=== PATIENT | female | born 1935 | race Caucasian/White ===

== ENCOUNTER 2016-11-30 16:32 | Emergency (ER) | payer OTHER ==
[2016-11-30 16:42] VITALS: RESP 18
--- NOTE | 2016-11-30 18:39 | EDPHY ---
H & P Time Seen by Provider: 11/30/16 18:38 HPI/ROS: Chief complaint. Spasms, shaky HPI. 81-year-old female presents with some spasms that seemed to go from abdomen to face that began this morning. She has a little bit of heartburn with this. No fever. No abdominal pain or nausea or vomiting. No chest discomfort other than the heartburn behind her sternum. She was prescribed an antidepressant by her physician at [facility] which she took for 3 days and then after reading the potential side effects quit taking it yesterday. Today the spasm stop. She does not know the name of the antidepressant. She has not had similar symptoms before ROS Constitutional. no fever/chills, no weakness Eyes. no problems with vision ENT. no sore throat, no nasal drainage Cardiovascular. Heartburn Respiratory. no shortness of breath, no cough Abdominal. Abdominal spasms without nausea vomiting . no problems urinating MS. no calf pain/swelling, no neck/back pain, no joint pain Skin. no rash Lymph. no swollen glands Neuro. no headache, no dizziness, no difficulty walking or with speech Past Medical/Surgical History: Past medical history is significant for hysterectomy and hypertension and dyslipidemia Social History: Single, nonsmoker, no alcohol Smoking Status: Never smoked Physical Exam: General Appearance: Alert well-developed female mild distress vital signs are stable Eyes: Pupils equal and round no pallor or injection. ENT, Mouth: Mucous membranes are moist. Respiratory: There are no retractions, lungs are clear to auscultation. Cardiovascular: Regular rate and rhythm. Gastrointestinal: Abdomen is soft and nontender, no masses, bowel sounds normal. Patient has almost a headache up appearance this fairly dramatic in goes from upper abdomen and then up to her neck every several minutes that appear to be a spasm. Neurological: Awake and alert, sensory and motor exams grossly normal. Skin: Warm and dry, no rashes. Musculoskeletal: Neck is supple nontender. Extremities symmetrical, full range of motion. Psychiatric: Patient is oriented X 3, there is no agitation. Constitutional: Initial Vital Signs Temperature (C) 36.7 C 11/30/16 16:39 Heart Rate 84 11/30/16 16:39 Respiratory Rate 18 11/30/16 16:39 Blood Pressure 133/71 H 11/30/16 16:39 O2 Sat (%) 95 08/10/17 16:39 O2 Delivery Mode Room Air Allergies/Adverse Reactions: No Known Allergies Allergy (Unverified 01/20/15 17:42) Home Medications: Medication Instructions Recorded Cholesteral Med 01/20/15 Fish Oil 01/20/15 Medical Decision Making - Diagnostics Imaging Results: One-view chest x-ray interpreted by me as nonacute Procedures: IV normal saline, monitor. Benadryl IV ED Course/Re-evaluation: Recheck at 9:00 p.m.--patient's spasms and symptoms have resolved after the Benadryl and Ativan. Her son went to get the medication and brought it back and it is mirtazapine The patient, her son, and I discussed imaging and lab results. We discussed treatment plan including criteria for return and importance of follow-up and further evaluation. They are encouraged to call their physician at [facility] tomorrow. They expressed understanding and agreement Differential Diagnosis: Possible dystonic reaction from her discontinued unknown psychiatric medication. I considered electrolyte abnormalities. - Data Points Laboratory Results: Laboratory Results 11/30/16 18:00 11/30/16 18:00 11/30/16 11/30/16 18:00 18:00 WBC 5.92 10^3/uL 10^3/uL (3.80-9.50) RBC 4.23 10^6/uL 10^6/uL (4.18-5.33) Hgb 12.2 g/dL L g/dL (12.6-16.3) Hct 37.6 % L % (38.0-47.0) MCV 88.9 fL fL (81.5-99.8) MCH 28.8 pg pg (27.9-34.1) MCHC 32.4 g/dL g/dL (32.4-36.7) RDW 13.3 % % (11.5-15.2) Plt Count 99 10^3/uL L 10^3/uL (150-400) MPV 14.2 fL H fL (8.7-11.7) Neut % (Auto) 76.7 % H % (39.3-74.2) Lymph % (Auto) 16.2 % % (15.0-45.0) Frontier % (Auto) 5.1 % % (4.5-13.0) Eos % (Auto) 1.0 % % (0.6-7.6) Baso % (Auto) 0.7 % % (0.3-1.7) Nucleat RBC Rel Count 0.0 % % (0.0-0.2) Absolute Neuts (auto) 4.54 10^3/uL 10^3/uL (1.70-6.50) Absolute Lymphs (auto) 0.96 10^3/uL L 10^3/uL (1.00-3.00) Absolute Monos (auto) 0.30 10^3/uL 10^3/uL (0.30-0.80) Absolute Eos (auto) 0.06 10^3/uL 10^3/uL (0.03-0.40) Absolute Basos (auto) 0.04 10^3/uL 10^3/uL (0.02-0.10) Absolute Nucleated RBC 0.00 10^3/uL 10^3/uL (0-0.01) Immature Gran % 0.3 % % (0.0-1.1) Immature Gran # 0.02 10^3/uL 10^3/uL (0.00-0.10) Sodium 135 mEq/L mEq/L (134-144) Potassium 5.4 mEq/L H mEq/L (3.5-5.2) Chloride 104 mEq/L mEq/L (97-110) Carbon Dioxide 20 mEq/l L mEq/l (22-31) Anion Gap 11 mEq/L mEq/L (8-16) BUN 28 mg/dL H mg/dL (7-23) Creatinine 1.4 mg/dL H mg/dL (0.6-1.0) Estimated GFR 36 Glucose 109 mg/dL H mg/dL (70-100) Calcium 10.0 mg/dL mg/dL (8.5-10.4) Troponin I < 0.012 ng/mL ng/mL (0-0.034) Lipase 34.0 IU/L IU/L (23-300) Medications Given: Discontinued Medications Diphenhydramine HCl (Benadryl Injection) 12.5 mg IVP EDNOW ONE Stop: 11/30/16 19:36 Last Admin: 11/30/16 19:46 Dose: 12.5 mg Lorazepam (Ativan Injection) 1 mg IVP EDNOW ONE Stop: 11/30/16 18:51 Last Admin: 11/30/16 19:23 Dose: Not Given Departure - Departure Disposition: Home, Routine, Self-Care Clinical Impression: Acute dystonic reaction due to drugs Condition: Good Instructions: Tremors (ED) Additional Instructions: May use Benadryl every 6 hours if needed for return of spasms. Call Dr. oscar walter at [facility] tomorrow to discuss medication. Return tonight for worsening symptoms Referrals: JN HARLEY [Primary Care Provider] - 1 day without fail
[2016-11-30] MEDS ORDERED: LORazepam 2 MG/ML INJ IVP ONE (18:50)
[2016-11-30 18:54] LABS: % IMMATURE GRANULYOCYTES 0.3 % (0.0-1.1); ABSOLUTE IMMATURE GRANULOCYTES 0.02 10^3/uL (0.00-0.10); ADD DIFF? NO; ADD MORPH? NO; ADD SCAN? NO; ATYPICAL LYMPHOCYTE FLAG 0 (0-99); FRAGMENT RBC FLAG 0 (0-99); HEMATOCRIT 37.6 % (38.0-47.0); HEMOGLOBIN 12.2 g/dL (12.6-16.3); LEFT SHIFT FLG 0 (0-99); LIPEMIA HEMOLYSIS FLAG 80 (0-99); MEAN CELL HEMOGLOBIN 28.8 pg (27.9-34.1); MEAN CELL HEMOGLOBIN CONCENTR. 32.4 g/dL (32.4-36.7); MEAN CELL VOLUME 88.9 fL (81.5-99.8); MEAN PLATELET VOLUME 14.2 fL (8.7-11.7); PLATELET CLUMPS FLAG 0 (0-99); PLATELET COUNT 99 10^3/uL (150-400); RED BLOOD CELL COUNT 4.23 10^6/uL (4.18-5.33); RED CELL DISTRIBUTION WIDTH 13.3 % (11.5-15.2)
[2016-11-30 19:01] LABS: ANION GAP 11 mEq/L (8-16); CARBON DIOXIDE 20 mEq/l (22-31); CHLORIDE 104 mEq/L (97-110); CREATININE 1.4 mg/dL (0.6-1.0); GLOMERULAR FILTRATION RATE 36; GLUCOSE 109 mg/dL (70-100); POTASSIUM 5.4 mEq/L (3.5-5.2); SODIUM 135 mEq/L (134-144)
[2016-11-30 19:13] LABS: TROPONIN I < 0.012 ng/mL (0-0.034)
[2016-11-30] MEDS ORDERED: LORAZEPAM 1 MG PREPACK#4 BTL TAKEHOME ONE (21:39)
[2016-11-30 21:41] VITALS: BP 125/67; PULSE 75; TEMP 97.5; O2SAT 94
[2016-11-30] MEDS ORDERED: diphenhydrAMINE 25 MG CAP PO ONE (21:44)
--- NOTE | 2016-11-30 21:44 | CPEKG ---
Heart Rate: 72 RR Interval: 833 P-R Interval: 184 QRSD Interval: 78 QT Interval: 380 QTC Interval: 416 P Fred[place]: 14 QRS Fred[place]: -29 T Wave Fred[place]: 67 EKG Severity - ABNORMAL ECG - EKG Impression: SINUS RHYTHM EKG Impression: BORDERLINE LEFT AXIS DEVIATION EKG Impression: CONSIDER ANTEROSEPTAL INFARCT Electronically Signed By: Barry Lemus 30-Nov-2016 22:17:14
== END 2016-11-30 22:13 | disposition home or self-care (01) ==
DX: G24.02 Drug induced acute dystonia (principal); T43.205A Adverse effect of unspecified antidepressants, initial encounter
CPT/HCPCS: 71010; 93005; 96374; 99285; J1200; J2060

== ENCOUNTER 2017-02-17 09:28 | Emergency (ER) | payer OTHER ==
[2017-02-17 09:53] VITALS: TEMP 98.2; O2SAT 95
--- NOTE | 2017-02-17 10:10 | EDPHY ---
General Narrative: CHIEF COMPLAINT: Left knee pain HISTORY OF PRESENT ILLNESS: Patient complains of increasing left knee pain that started approximately 10 days ago. This was when she was visiting her sister in [place]. She says that she had to use the stairs there and that is when the pain started. She resides at a place where she uses an elevator and never uses the stairs. After 1 day of using the stairs while traveling, her knee began to her. It became more painful as she kept using the stairs. It radiates into the tibial plateau. It is moderate to severe with ambulation weight-bearing. It is minimal at rest. No numbness or tingling. No changes in temperature. No calf redness, pain or swelling. No trauma or injury. No other associated complaints or modifying factors. ESTABLISHED ORTHOPEDIST: None currently. [facility] patient REVIEW OF SYSTEMS: Ten systems reviewed and are negative unless otherwise noted in the HPI PAST MEDICAL HISTORY: Hypertension, dyslipidemia, arthritis. PAST SURGICAL HISTORY: Right total hip arthroplasty SOCIAL HISTORY: Nonsmoker. Retired. Originally from [place]. Has lived in [place] for 40 years FAMILY HISTORY: Noncontributory EXAMINATION General Appearance: Alert, no distress Cardiovascular: Pulses normal throughout. Symmetric DP pulses 2+. Symmetric PT pulses 2+. Brisk cap refill Neurological: A&O, sensory symmetric, strength symmetric. No foot drop. Strength symmetric in the lower extremities. Skin: Warm and dry, no rash. No petechiae or purpura. Extremities: Tenderness of the knee joint on both joint lines. There is no tenderness of the patellar tendon. There is no crepitus. No instability of the knee. Negative Luann's. There is no warmth, redness or swelling of the calf. No tenderness of the left calf. No palpable cords. No pain with passive dorsiflexion of the left ankle. No evidence of DVT by examination. Psychiatric: Mood and affect normal DIFFERENTIAL DIAGNOSES: Including but not limited to sprain, strain, arthritis, fracture, DVT MDM: 10:05 a.m. Increasing left knee pain after using the stairs over the past week while visiting her family in [place]. Pain started when she started using the stairs. It did not start prior to that. It is moderate to severe when ambulating. Minimal at rest. No numbness or tingling. It does radiate into the tibial plateau and walking. No complaints distally. No calf pain redness or swelling. No thigh pain redness or swelling. No changes in temperature or sensation. I have ordered an x-ray of the knee. She is in no acute distress. 11:05 a.m. Contacted by radiologist Dr. Whaley. Ultrasound the left lower extremity reveals no DVT. 11:20 a.m. X-ray reveals chondrocalcinosis but no fracture dislocation. I re-evaluated the patient at this time. She continues to report pain. I informed him the negative findings. I have ordered a dose of Lucerne 5 mg. I will send her home with the same prescription. She has ibuprofen or Aleve that she can take at home. She is a [facility] patient, thus she will follow up with them. Her son is at bedside I have answered all their questions. He is comfortable with her being discharged home on her cane. Patient is comfortable this as well. We discussed ED precautions. ED Precautions: Worsening pain. Erythema, edema, cyanosis, pallor, paresthesia or anesthesia. - Diagnostics Imaging Results: Imaging Impressions Knee X-Ray 02/17/17 10:07 Impression: Chondrocalcinosis. Advanced patellofemoral chondromalacia. Extremity Venous Study 02/17/17 10:10 Impression: No deep venous thrombosis left leg. Results called to Michael Eli PA-C, at 11:00 AM. - History Smoking Status: Never smoked - Objective Vital Signs: Initial Vital Signs Temperature (C) 98.2 F 02/17/17 09:40 Heart Rate 76 02/17/17 09:40 Respiratory Rate 20 02/17/17 09:40 Blood Pressure 170/82 H 02/17/17 09:40 O2 Sat (%) 95 02/17/17 09:40 O2 Delivery Mode Room Air Allergies/Adverse Reactions: No Known Allergies Allergy (Verified 02/17/17 09:40) Home Medications: Medication Instructions Recorded Cholesteral Med 01/20/15 Fish Oil 01/20/15 Blood Pressure Medication 02/17/17 Hydrocodone/APAP 5325 [Lucerne 1 - 2 tab PO Q4H PRN #13 tab 02/17/17 5/325 (*)] Departure - Departure Disposition: Home, Routine, Self-Care Clinical Impression: Patellofemoral arthritis of left knee, Chondrocalcinosis Condition: Good Instructions: Patellofemoral Pain Syndrome (ED), Osteoarthritis (ED), Knee Pain (ED) Additional Instructions: 1. Ibuprofen 600 mg every 8-10 hours as needed 2. Lucerne as prescribed as needed 3. Follow up with your [facility] orthopedist for definitive care 4. Follow up with the on-call orthopedist throughout at work if needed 5. ED precautions as discussed Referrals: JN HARLEY [Primary Care Provider] - As per Instructions Nahum Kline MD [Medical Doctor] - As per Instructions Prescriptions: Hydrocodone/APAP 5/325 [Lucerne 5/325 (*)] 1 - 2 tab PO Q4H PRN #13 tab PRN Reason: Pain, Moderate
[2017-02-17] MEDS ORDERED: HYDROCODONE/APAP 5/325 TAB PO ONE (11:23)
[2017-02-17 11:42] VITALS: BP 198/117; PULSE 72; RESP 18
== END 2017-02-17 12:01 | disposition home or self-care (01) ==
DX: M17.9 Osteoarthritis of knee, unspecified (principal); M11.262 Other chondrocalcinosis, left knee; I10 Essential (primary) hypertension

== ENCOUNTER 2018-07-11 15:08 | Inpatient (IN) | payer OTHER ==
--- NOTE | 2018-07-11 15:54 | EDPHY ---
H & P Stated Complaint: dizzy since this waking this morning; left ear pain, headache Time Seen by Provider: 07/11/18 15:38 HPI/ROS: CHIEF COMPLAINT: Left ear pain, room spinning sensation HISTORY OF PRESENT ILLNESS: 83-year-old female presents with left ear pain and a room spinning sensation. Onset of constant left ear pain 10 days ago. Seen by primary care physician and given Cerumenex. Returned to the office 2-3 days later and the wax was cleared by the provider. [place] transiently better, but left ear pain returned and has gradually worsened. Today she woke up with dizziness, described as a room spinning sensation. The dizziness occurs especially with standing and with ambulation. Associated with occasional nausea. No prior similar symptoms. No chest pain or shortness of breath. No recent change in medications. REVIEW OF SYSTEMS: complete 10 point ROS reviewed and is negative except for the noted elements in the HPI - Personal History Current Tetanus/Diphtheria Vaccine: Unsure Current Tetanus Diphtheria and Acellular Pertussis (TDAP): Unsure - Medical/Surgical History Hx Asthma: No Hx Chronic Respiratory Disease: No Hx Diabetes: No Hx Cardiac Disease: No Hx Renal Disease: No Hx Cirrhosis: No Hx Alcoholism: No Hx HIV/AIDS: No Hx Splenectomy or Spleen Trauma: No Other PMH: PSH: cyst removal; hysterectomy; HTN, hyperlipidemia. PMH:denies - Social History Smoking Status: Never smoked Alcohol Use: Sober Drug Use: None - Physical Exam Exam: General Appearance: Alert, pleasant Eyes: Pupils equal and round, no conjunctival pallor or injection, no nystagmus ENT, Mouth: Mucous membranes moist, TMs clear, no wax present in the auditory canal Neck: Normal inspection, no tenderness Respiratory: Lungs are clear to auscultation Cardiovascular: Regular rate and rhythm, 2/6 systolic murmur Gastrointestinal: Abdomen is soft and nontender Rectal: Brown stool present Neurological: A&O, cranial nerves 2-12 intact, motor 5/5, gait is slightly unsteady Skin: Warm and dry Extremities: Normal inspection Psychiatric: Mood and affect normal Constitutional: Initial Vital Signs Temperature (C) 36.5 C 07/11/18 15:16 Heart Rate 91 07/11/18 15:16 Respiratory Rate 14 07/11/18 15:16 Blood Pressure 102/61 07/11/18 15:16 O2 Sat (%) 97 07/11/18 15:16 O2 Delivery Mode Room Air Allergies/Adverse Reactions: No Known Allergies Allergy (Verified 02/17/17 09:40) Home Medications: Medication Instructions Recorded Multivitamins [Multivitamin (*)] 1 each PO DAILY 07/11/18 Simvastatin 20 mg PO DAILY 07/11/18 amLODIPine BESYLATE [Amlodipine 5 mg PO DAILY 07/11/18 Besylate] Medical Decision Making - Diagnostics EKG Interpretation: EKG interpreted by me reveals NSR, rate 73, RBBB, LAFB. Interpretation: abnormal EKG Imaging Results: Head CT 07/11/18 15:50 Impression: 1. Elderly brain, with atrophy and probable white matter small vessel disease. 2. Nothing acute is identified. 3. See above report for additional findings. Results called and discussed with Cayla Elizalde M.D., on July 11, 2018 at 1629. Imaging: Discussed imaging studies w/ freight caller Radiologist ED Course/Re-evaluation: This pt presents with left ear pain, vertigo/dizziness and unsteady gait. Neurologic exam is normal except for unsteady gait. NIH stroke score 0. EKG reveals noevidence of ischemia or dysrhythmia. CT head is unremarkable, MRI brain ordered for further eval, r/o CVA or mass. Tylenol given for ear pain. Severe anemia present, Hct 27 with elevated BUN, suggests recent GIB. Severe anemia likely contributing to dizziness and gait disturbance. h/o intermittent BRBPR, possible eitiology of anemia, stool brown, occult blood positive. Will admit for further eval of anemia. The hospitalist service was consulted for admission. Differential Diagnosis: Differential diagnosis includes TIA, stroke, intracranial hemorrhage, tumor, electrolyte abnormality and acute labyrinthitis. - Data Points Laboratory Results: Laboratory Results 07/11/18 16:04 07/11/18 16:04 Medications Given: Amlodipine Besylate (Norvasc) 5 mg PO DAILY [facility] Stop: 01/08/19 08:59 Last Admin: 07/12/18 09:08 Dose: 5 mg Atorvastatin Calcium (Lipitor) 10 mg PO DAILY [facility] Stop: 01/08/19 08:59 Last Admin: 07/12/18 09:32 Dose: Not Given Sodium Chloride (Ns) 1,000 mls @ 125 mls/hr IV CONT [facility] Last Admin: 07/12/18 06:15 Dose: 1,000 mls Multivitamins (Tab-A-Melba) 1 each PO DAILY [facility] Stop: 01/08/19 08:59 Last Admin: 07/12/18 09:33 Dose: Not Given Pantoprazole Sodium (Protonix) 40 mg PO BID [facility] Stop: 01/07/19 20:59 Last Admin: 07/12/18 09:08 Dose: 40 mg Tramadol HCl (Ultram) 50 mg PO Q6HRS PRN PRN Reason: Pain, Moderate Able to Take PO Stop: 01/07/19 20:45 Last Admin: 07/11/18 21:11 Dose: 50 mg Trazodone HCl (Trazodone) 50 mg PO HS PRN PRN Reason: Sleep/Insomnia Stop: 01/07/19 20:59 Last Admin: 07/11/18 21:11 Dose: 50 mg Discontinued Medications Acetaminophen (Tylenol) 650 mg PO EDNOW ONE Stop: 07/11/18 17:03 Last Admin: 07/11/18 17:11 Dose: 650 mg Sodium Chloride (Ns) 500 mls @ 1,000 mls/hr IV EDNOW ONE PRN Reason: Protocol Stop: 07/11/18 17:20 Last Admin: 07/11/18 17:03 Dose: 500 mls Ketorolac Tromethamine (Toradol) 15 mg IVP ONCE ONE Stop: 07/11/18 19:57 Last Admin: 07/11/18 20:17 Dose: 15 mg Lorazepam (Ativan Injection) 0.5 mg IVP EDNOW ONE Stop: 07/11/18 17:15 Last Admin: 07/11/18 17:16 Dose: 0.5 mg Pantoprazole Sodium (Protonix) 40 mg IVP BID [facility] Stop: 01/07/19 20:59 Last Admin: 07/11/18 20:17 Dose: 40 mg Point of Care Test Results: Chemistry 07/11/18 16:18 POC Troponin I 0.00 ng/mL ng/mL (0.00-0.08) Departure - Departure Disposition: [facility] Clinical Impression: Vertigo Anemia Qualifiers: Anemia type: unspecified type Qualified Code(s): D64.9 - Anemia, unspecified Condition: Fair
[2018-07-11 16:26] LABS: PLATELET COUNT 109 10^3/uL (150-400)
[2018-07-11] MEDS ORDERED: NS 500 ML IV ONE (16:51)
[2018-07-11] MEDS ORDERED: ACETAMINOPHEN 325 MG TAB PO ONE (17:02)
[2018-07-11] MEDS ORDERED: LORazepam 2 MG/ML INJ IVP ONE (17:14)
[2018-07-11] MEDS ORDERED: LORazepam 2 MG/ML INJ ONE (17:15)
[2018-07-11] MEDS ORDERED: ACETAMINOPHEN 325 MG TAB PO PRN (17:30)
[2018-07-11] MEDS ORDERED: ONDANSETRON 4 MG/2 ML VIAL IVP PRN (17:30)
[2018-07-11] MEDS ORDERED: ONDANSETRON DISINTEGRATING 4 MG TAB PO PRN (17:30)
--- NOTE | 2018-07-11 19:11 | PDGENHP ---
<Tessa Palumbo - Last Filed: 07/11/18 19:41> History and Physical - Chief Complaint Left ear pain, vertigo - History of Present Illness 83 y/o female w/ hx of HTN, HLD presents w/ left ear pain and vertigo. 10 days prior, she was evaluated by her PCP for left ear pain. She was given Cercumenex and returned to PCP's office a few days later for wax removal. She had transient relief however the pain has worsened. Described as a dull ache w / severity of 6-7/10, it does not inhibit her hearing. Today she woke up w/ dizziness as if the room is spinning and she experiences this while upright and feels off balance. Associated w/ mild nausea. Endorses occasional bright red blood in her stool, occurring for the last few weeks. Last colonoscopy was 3-5 years ago, benign polyps removed and was instructed to f/u w/repeat colonoscopy in 5 years. Denies CP, palpitations, fever, chills, dysuria, vomiting, diarrhea , constipation. She is being admitting for further work-up, treatment and monitoring. History Information - Allergies/Home Medication List Allergies/Adverse Reactions: No Known Allergies Allergy (Verified 02/17/17 09:40) Home Medications: Multivitamins [Multivitamin (*)] 1 each PO DAILY 07/11/18 [Last Taken Unknown] Simvastatin 20 mg PO DAILY 07/11/18 [Last Taken Unknown] amLODIPine BESYLATE [Amlodipine Besylate] 5 mg PO DAILY 07/11/18 [Last Taken Unknown] I have personally reviewed and updated: family history, medical history, social history, surgical history - Past Medical History hypertension, hyperlipidemia - Surgical History Reports: hysterectomy - Family History Positive for: cancer (Mother had stomach cancer) - Social History Smoking Status: Never smoked Alcohol Use: Rarely Drug Use: None Additional social history: Lives in [place]. Originally from [place]. Has lived in [place] for 42 years. Review of Systems Review of Systems: ROS: 10pt was reviewed & negative except for what was stated in HPI & below Physical Exam Physical Exam: Lab data and imaging were reviewed. RBC/H/H:3.09/8.9/27.6 Plt: 109 BUN/Cr: 72/1.2 Trop: 0.00 Stool occult: + EKG: SR Head CT: elderly brain w/atrophy and probable white matter small vessel disease , nothing acute identified Brain MRI: Limited study d/t motion however there is no definite abnormality. Cerebral atrophy w/ evidence of chronic microvascular ischemic disease. Temp Pulse Resp BP Pulse Ox 36.8 C 76 16 163/82 H 96 07/11/18 18:36 07/11/18 18:36 07/11/18 18:36 07/11/18 18:36 07/11/18 18:36 Constitutional: uncomfortable (Moderately distressed d/t left ear pain) Eyes: PERRL, anicteric sclera, EOMI, other (No nystagmus, unable to provoke dizziness while lying supine) Ears, Nose, Mouth, Throat: moist mucous membranes, hearing normal (L ear canal w /no evidence of inflammation/infection, tympanic membrane intact not red or inflammed.), ears appear normal, no oral mucosal ulcers Cardiovascular: regular rate and rhythym, systolic murmur Peripheral Pulses: 2+: dorsalis-pedis (R) (Radial 2+), dorsalis-pedis (L) ( Radial 2+) Respiratory: no respiratory distress, no rales or rhonchi, clear to auscultation Gastrointestinal: normoactive bowel sounds, soft, non-tender abdomen, no palpable masses Genitourinary: no bladder fullness, no bladder tenderness Skin: warm, normal color, no rashes or abrasions, no fluctuance, no induration, No mottled Musculoskeletal: full muscle strength, no muscle tenderness, normal joint ROM, no joint effusions Neurologic: AAOx3, sensation intact bilaterally, CN II-XII Intact Psychiatric: interacting appropriately, not encephalopathic, thought process linear, anxious (Mildly anxious) Lymph, Heme, Immunologic: no cervical LAD, no supraclavicular LAD Lab Data & Imaging Review 07/11/18 16:04 07/11/18 16:04 WBC 4.93 10^3/uL (3.80-9.50) 07/11/18 16:04 RBC 3.09 10^6/uL (4.18-5.33) L 07/11/18 16:04 Hgb 8.9 g/dL (12.6-16.3) L 07/11/18 16:04 Hct 27.6 % (38.0-47.0) L 07/11/18 16:04 MCV 89.3 fL (81.5-99.8) 07/11/18 16:04 MCH 28.8 pg (27.9-34.1) 07/11/18 16:04 MCHC 32.2 g/dL (32.4-36.7) L 07/11/18 16:04 RDW 14.2 % (11.5-15.2) 07/11/18 16:04 Plt Count 109 10^3/uL (150-400) L 07/11/18 16:04 MPV 14.1 fL (8.7-11.7) H 07/11/18 16:04 Neut % (Auto) 80.1 % (39.3-74.2) H 07/11/18 16:04 Lymph % (Auto) 14.2 % (15.0-45.0) L 07/11/18 16:04 [place] % (Auto) 3.9 % (4.5-13.0) L 07/11/18 16:04 Eos % (Auto) 1.0 % (0.6-7.6) 07/11/18 16:04 Baso % (Auto) 0.6 % (0.3-1.7) 07/11/18 16:04 Nucleat RBC Rel Count 0.0 % (0.0-0.2) 07/11/18 16:04 Absolute Neuts (auto) 3.95 10^3/uL (1.70-6.50) 07/11/18 16:04 Absolute Lymphs (auto) 0.70 10^3/uL (1.00-3.00) L 07/11/18 16:04 Absolute Monos (auto) 0.19 10^3/uL (0.30-0.80) L 07/11/18 16:04 Absolute Eos (auto) 0.05 10^3/uL (0.03-0.40) 07/11/18 16:04 Absolute Basos (auto) 0.03 10^3/uL (0.02-0.10) 07/11/18 16:04 Absolute Nucleated RBC 0.00 10^3/uL (0-0.01) 07/11/18 16:04 Immature Gran % 0.2 % (0.0-1.1) 07/11/18 16:04 Immature Gran # 0.01 10^3/uL (0.00-0.10) 07/11/18 16:04 Sodium 138 mEq/L (135-145) 07/11/18 16:04 Potassium 4.8 mEq/L (3.5-5.2) 07/11/18 16:04 Chloride 111 mEq/L (97-110) H 07/11/18 16:04 Carbon Dioxide 18 mEq/l (22-31) L 07/11/18 16:04 Anion Gap 9 mEq/L (6-14) 07/11/18 16:04 BUN 72 mg/dL (7-23) H 07/11/18 16:04 Creatinine 1.2 mg/dL (0.6-1.0) H 07/11/18 16:04 Estimated GFR 43 07/11/18 16:04 Glucose 165 mg/dL (70-100) H 07/11/18 16:04 Calcium 9.1 mg/dL (8.5-10.4) 07/11/18 16:04 POC Troponin I 0.00 ng/mL (0.00-0.08) 07/11/18 16:18 Stool Occult Bld Scrn POSITIVE (NEGATIVE) H 07/11/18 17:00 Assessment & Plan Assessment: 83 y/o female w/ hx of HTN and HLD presents w/ 10 days worth of left ear pain transiently relieved after PCP removed wax a few days ago. Today c/o vertigo associated w/mild nausea, no vomiting. Lab works reveals anemia, stool occult + , and she endorses occasional bright red blood in stool for the last few weeks. #Left ear pain/vertigo: Stroke work-up unremarkable (Head CT and Brain MRI). Received Tylenol, 1/2L NS and Ativan in ED w/ minimal relief of ear pain. Possible viral labyrinthitis. -PT/OT to evaluate and treat -Meclizine PRN -Anti-emetics PRN -Ativan PRN -IVF x 2 bags #Anemia: Last colonoscopy 3-5 years ago w/ benign polyps removed. Last H/H was from 2017 and was 12.7/37.6. Current H/H 8.9/27.6 could be a component to her dizziness. Denies fatigue. -Cycle H&H Q4H x 2 -Consulted GI. Left message for Dr. Mancera. If H&H remain stable, possible intervention (like colonoscopy) could be performed outpatient but this is dependent on the clinical status of the pt. -Iron panel pending -Protonix -IVF x 2 bags #Hypertension: on amlodipine #Hyperlipidemia: on simvastatin Diet: Regular Code: Full VTE ppx: SCDs Dispo: Admit to obs <Josue Velasquez - Last Filed: 07/11/18 20:24> History and Physical - History of Present Illness Review of Systems Review of Systems: Physical Exam Physical Exam: Temp Pulse Resp BP Pulse Ox 36.7 C 76 16 130/70 H 97 07/11/18 19:28 07/11/18 19:28 07/11/18 19:28 07/11/18 19:28 07/11/18 19:28 Lab Data & Imaging Review 07/11/18 18:35 07/11/18 16:04 WBC 4.93 10^3/uL (3.80-9.50) 07/11/18 16:04 RBC 3.09 10^6/uL (4.18-5.33) L 07/11/18 16:04 Hgb 8.7 g/dL (12.6-16.3) L 07/11/18 18:35 Hct 27.5 % (38.0-47.0) L 07/11/18 18:35 MCV 89.3 fL (81.5-99.8) 07/11/18 16:04 MCH 28.8 pg (27.9-34.1) 07/11/18 16:04 MCHC 32.2 g/dL (32.4-36.7) L 07/11/18 16:04 RDW 14.2 % (11.5-15.2) 07/11/18 16:04 Plt Count 109 10^3/uL (150-400) L 07/11/18 16:04 MPV 14.1 fL (8.7-11.7) H 07/11/18 16:04 Neut % (Auto) 80.1 % (39.3-74.2) H 07/11/18 16:04 Lymph % (Auto) 14.2 % (15.0-45.0) L 07/11/18 16:04 [place] % (Auto) 3.9 % (4.5-13.0) L 07/11/18 16:04 Eos % (Auto) 1.0 % (0.6-7.6) 07/11/18 16:04 Baso % (Auto) 0.6 % (0.3-1.7) 07/11/18 16:04 Nucleat RBC Rel Count 0.0 % (0.0-0.2) 07/11/18 16:04 Absolute Neuts (auto) 3.95 10^3/uL (1.70-6.50) 07/11/18 16:04 Absolute Lymphs (auto) 0.70 10^3/uL (1.00-3.00) L 07/11/18 16:04 Absolute Monos (auto) 0.19 10^3/uL (0.30-0.80) L 07/11/18 16:04 Absolute Eos (auto) 0.05 10^3/uL (0.03-0.40) 07/11/18 16:04 Absolute Basos (auto) 0.03 10^3/uL (0.02-0.10) 07/11/18 16:04 Absolute Nucleated RBC 0.00 10^3/uL (0-0.01) 07/11/18 16:04 Immature Gran % 0.2 % (0.0-1.1) 07/11/18 16:04 Immature Gran # 0.01 10^3/uL (0.00-0.10) 07/11/18 16:04 Sodium 138 mEq/L (135-145) 07/11/18 16:04 Potassium 4.8 mEq/L (3.5-5.2) 07/11/18 16:04 Chloride 111 mEq/L (97-110) H 07/11/18 16:04 Carbon Dioxide 18 mEq/l (22-31) L 07/11/18 16:04 Anion Gap 9 mEq/L (6-14) 07/11/18 16:04 BUN 72 mg/dL (7-23) H 07/11/18 16:04 Creatinine 1.2 mg/dL (0.6-1.0) H 07/11/18 16:04 Estimated GFR 43 07/11/18 16:04 Glucose 165 mg/dL (70-100) H 07/11/18 16:04 Calcium 9.1 mg/dL (8.5-10.4) 07/11/18 16:04 Iron 63.0 mcg/dL (37.0-170.0) 07/11/18 18:35 TIBC 293 ug/dL (260-490) 07/11/18 18:35 Iron Saturation 22 % (20-55) 07/11/18 18:35 POC Troponin I 0.00 ng/mL (0.00-0.08) 07/11/18 16:18 Stool Occult Bld Scrn POSITIVE (NEGATIVE) H 07/11/18 17:00 Assessment & Plan Plan: Chart reviewed, personally examined, and discussed case with Lala Palumbo NP. I agree with her plan as outlined. Please see my separate note for additional details.
[2018-07-11] MEDS ORDERED: MECLIZINE HCL 12.5 MG TAB PO PRN (19:24)
[2018-07-11] MEDS ORDERED: LORazepam 0.5 MG TAB PO PRN (19:24)
[2018-07-11] MEDS ORDERED: KETOROLAC 15 MG/1 ML SDV IVP ONE (19:56)
--- NOTE | 2018-07-11 20:25 | HOSPPROG ---
Hospitalist Progress Note Assessment/Plan: I agree with plan outlined in Lala Palumbo [employer] note with the following exceptions: Briefly, 83yo rather healthy F here with vertigo and left ear pain. No drainage from ear. No URI symptoms. No fevers. Her ear feels full. Hearing slightly muffled on that side but no tinnitus. She has also been having room-spinning dizziness whenever she moves around. She lives alone and has been unsteady on her feet. Exam notable for horizontal nystagmus. Outer ear and oropharnyx appear unremarkable. Labs remarkable for hemoglobin of 8.9, MCV 89, platelets 109, Cr 1.2. CT head and MRI brain without acute stroke or bleed. Assessment/Plan: #Vertigo: Peripheral etiology, suspect BPPV or vestibular neuritis. Trial conservative mgmt with meclizine, hydration. OT for vestibular rehab. #Anemia: New. Denies blood loss. Agree with sending iron studies, b12. GI has already been consulted. If no bleeding, can likely get outpatient scope. #Thrombocytopenia: Chronic. #Elevated creatinine: Lower than previous values in our system, suspect element of CKD. Admit under observation. Objective: Vital Signs Temp Pulse Resp BP Pulse Ox 36.7 C 76 16 130/70 H 97 07/11/18 19:28 07/11/18 19:28 07/11/18 19:28 07/11/18 19:28 07/11/18 19:28 Laboratory Results 07/11/18 18:35 07/10/18 07/11/18 07/12/18 05:59 05:59 05:59 Intake Total 500 Balance 500 ICD10 Worksheet Patient Problems: Problems Problem Status Onset Vertigo Acute - ICD10 Problem Qualifiers (1) Vertigo
[2018-07-11] MEDS ORDERED: traZODone 50 MG TAB PO PRN (20:45)
[2018-07-11] MEDS ORDERED: traMADol 50 MG TAB PO PRN (20:46)
[2018-07-11] MEDS: PANTOPRAZOLE SODIUM 40 MG TAB PO SCH (20:58)
[2018-07-11] MEDS ORDERED: PANTOPRAZOLE SODIUM 40 MG VIAL IVP SCH (21:00)
[2018-07-11] MEDS: NS 1,000 ML IV SCH (22:00)
--- NOTE | 2018-07-11 23:04 | CPEKG ---
Test Reason : OPEN Blood Pressure : / mmHG Vent. Rate : 073 BPM Atrial Rate : 074 BPM P-R Int : 188 ms QRS Dur : 120 ms QT Int : 385 ms P-R-T Axes : 001 -54 041 degrees QTc Int : 425 ms Sinus rhythm Atrial premature complex Incomplete RBBB and LAFB Confirmed by Cayla Lei ([id number]) on 07/11/2018 11:04:29 PM Referred By: CAYLA LEI Confirmed By:Cayla Lei
[2018-07-12 05:24] LABS: PLATELET COUNT 93 10^3/uL (150-400)
[2018-07-12] MEDS: NS 1,000 ML IV SCH (06:15)
[2018-07-12] MEDS: amLODIPine BESYLATE 5 MG TAB PO SCH (09:08)
[2018-07-12] MEDS: MULTIVITAMINS 1 EACH TAB PO SCH ×2 (09:08→09:33)
[2018-07-12] MEDS: PANTOPRAZOLE SODIUM 40 MG TAB PO SCH ×2 (09:08→20:30)
[2018-07-12] MEDS: ATORVASTATIN CALCIUM 10 MG TAB PO SCH ×2 (09:08→09:32)
[2018-07-12] MEDS ORDERED: PEG 3350/NA SULF,BICARB,CL/KCL (GAVILYTE-G) 4000 ML BTL PO ONE ×2 (12:01→16:30)
--- NOTE | 2018-07-12 12:37 | GCON ---
[f rep st] CONSULTATION DATE OF CONSULTATION: 07/12/2018 REFERRING PHYSICIAN: Josue Velasquez MD CHIEF COMPLAINT: Anemia. HPI: I am asked to see this patient in consultation by Dr. Josue Velasquez for a chief complaint of anemia. The patient is a pleasant 83-year-old who has been having some dizziness and vertigo with ear pain and presented to the emergency room and then found to have anemia. Overnight, her hematocrit has dropped, with a hematocrit initially of 27 and now 23.0. She states that she has been having several weeks of intermittent bright red blood. She states it is just "a little bit," but she does note that there has been bright red blood in her stools, as well as on the toilet paper. She denies any melena. Her last bloody bowel movement was about a week ago. She has no prior history of GI bleeding. No history of peptic ulcer disease. Denied GERD symptoms. No dysphagia. Does not use NSAIDS. Does not drink alcohol. States she had a colonoscopy maybe 4 years ago with removal of a polyp. She is unsure if there was diverticulosis, but believes she may have had hemorrhoids. Mother of stomach cancer. ALLERGIES: No known allergies. MEDICATIONS: At home include multivitamin, amlodipine, and simvastatin. PAST MEDICAL HISTORY: Hypertension and hyperlipidemia. Cardiac murmur. She is post a hysterectomy. History of colon polyps. SOCIAL HISTORY: Denies alcohol use. FAMILY HISTORY: Mother had stomach cancer. REVIEW OF SYSTEMS: I performed a complete review of systems which was negative except for the pertinent positives and negatives noted above in the HPI. PHYSICAL EXAM: VITAL SIGNS: Today, afebrile at 36.5. BP 136/71, pulse 69. GENERAL APPEARANCE: She is alert and oriented. EYES: No scleral icterus. HEENT: No oral lesions. CARDIOVASCULAR: Regular rare and rhythm. Slight murmur. CHEST: Clear to auscultation. ABDOMEN: Positive bowel sounds. Soft. There is no tenderness. NEUROLOGIC: Nonfocal. SKIN: No lesions. LABORATORY DATA: On admission, H and H with a hemoglobin 8.9 and a hematocrit of 27.6. Today, it is now 7.0, with a hematocrit of 23. MCV was normal at 89.3. Chemistries: Elevated BUN at 72 with a creatinine of 1.2. She is Heme- positive, but there were no reports of any bright red blood or melena overnight. ASSESSMENTS: 1. Anemia, with decrease in hemoglobin and hematocrit. 2. Hematochezia, concerning for a gastrointestinal bleed; however, I think this is clinically resolved as she has had no reports of bright red blood since last week. A confusing picture because hematochezia would suggest a lower gastrointestinal bleed; however, her BUN is increased, and this often correlates with an upper gastrointestinal bleed. However, I do not think that she is having a brisk upper gastrointestinal bleed as she is otherwise hemodynamically stable. Given her significant drop in hematocrit, the patient is going to get a transfusion. I would recommend that she undergo an upper and lower endoscopy this admission. Overall she would be at increased risk due to potential for active bleeding with anemia. Discussed with the patient and her son, and they are in agreement. PLAN: 1. We will change to a clear liquid diet. 2. Prep for a colonoscopy and upper endoscopy in the morning. I would recommend that this be done with anesthesia given her age and history of cardiac murmur; however, may need to consider an urgent upper endoscopy if she should become hemodynamically unstable with evidence of active GI bleeding. Thank you for this consult. /[id number]/MODL MTDD
--- NOTE | 2018-07-12 12:44 | ASMTCMCOM ---
CM Note CM Note Notes: Pt admitted from home for dizziness and ear pain. She will have a scope tomorrow for anemia, PT/OT to [facility] bro w/f. DC Plan: TBD Date Signed: 07/12/2018 12:44 PM Electronically Signed By:Madalyn Felder RN
--- NOTE | 2018-07-12 17:20 | HOSPPROG ---
Hospitalist Progress Note Assessment/Plan: 83 y/o female w/ hx of HTN and HLD presents with left ear pain, found to be anemic and heme positive. #Left ear pain/vertigo: MRI and CT head negative. No longer with vertigo, but still has left ear pain. I attempted to examine with otoscope but her ear still had a fair amount of cerumen which obscured her tympanic membrane. -PT/OT to evaluate and treat -Meclizine PRN -Anti-emetics PRN -try debrox and re examine. #Anemia: Last colonoscopy 3-5 years ago w/ benign polyps removed. Last H/H was from 2017 and was 12.7/37.6. H/H down overnight to 11/11. -Cycle H&H Q4H x 2 -GI consulted who will take patient for colonoscopy in am. -GI prep -continue close monitoring of h/h -ppi -clears and then NPO at MN #Hypertension: on amlodipine #Hyperlipidemia: on simvastatin Diet: Regular Code: Full VTE ppx: SCDs Dispo: change to inpatient for GIB. Subjective: left ear still hurts. not dizzy or faint currently. Objective: Vital Signs Temp Pulse Resp BP Pulse Ox 36.6 C 72 14 145/66 H 94 07/12/18 15:49 07/12/18 15:49 07/12/18 15:49 07/12/18 15:49 07/12/18 15:49 Laboratory Results 07/12/18 05:05 07/12/18 05:05 07/11/18 07/12/18 07/13/18 05:59 05:59 05:59 Intake Total 650 Balance 650 - Physical Exam Constitutional: no apparent distress, appears nourished, not in pain Eyes: PERRL, anicteric sclera, EOMI Ears, Nose, Mouth, Throat: moist mucous membranes, hearing normal, ears appear normal, no oral mucosal ulcers Cardiovascular: regular rate and rhythym, no murmur, rub, or gallop Respiratory: no respiratory distress, no rales or rhonchi, clear to auscultation Gastrointestinal: normoactive bowel sounds, soft, non-tender abdomen, no palpable masses Genitourinary: no bladder fullness, no bladder tenderness, no renal bruits Skin: no rashes or abrasions, no fluctuance, no induration Musculoskeletal: full muscle strength, no muscle tenderness, normal joint ROM Neurologic: AAOx3, sensation intact bilaterally Psychiatric: interacting appropriately, not anxious, not encephalopathic, thought process linear Lymph, Heme, Immunologic: no cervical LAD, no supraclavicular LAD ICD10 Worksheet Patient Problems: Problems Problem Status Onset Anemia Acute Vertigo Acute
[2018-07-12] MEDS ORDERED: MAGNESIUM CITRATE 300 ML BOTTLE PO ONE (22:45)
[2018-07-12 23:06] LABS: PLATELET COUNT 108 10^3/uL (150-400)
[2018-07-13] MEDS: PANTOPRAZOLE SODIUM 40 MG TAB PO SCH (08:51)
[2018-07-13] MEDS: amLODIPine BESYLATE 5 MG TAB PO SCH (08:52)
[2018-07-13 09:40] LABS: PLATELET COUNT 104 10^3/uL (150-400)
[2018-07-13] MEDS: ATORVASTATIN CALCIUM 10 MG TAB PO SCH (10:48)
[2018-07-13] MEDS: MULTIVITAMINS 1 EACH TAB PO SCH (10:49)
[2018-07-13] MEDS ORDERED: fentaNYL 100 MCG/2 ML INJ IVP PRN (11:01)
[2018-07-13] MEDS ORDERED: NALOXONE HCL 0.4 MG/ML INJ IVP PRN (11:01)
[2018-07-13] MEDS ORDERED: ONDANSETRON 4 MG/2 ML VIAL IVP PRN (11:01)
[2018-07-13] MEDS ORDERED: HYDROmorphONE/DILAUDID 2 MG/ML INJ IVP PRN (11:01)
[2018-07-13] MEDS ORDERED: ALBUTEROL 3 ML DEYVIAL IH PRN (11:01)
[2018-07-13] MEDS ORDERED: NS 500 ML IV PRN (11:01)
--- NOTE | 2018-07-13 11:01 | PDANEPAE ---
ANE History of Present Illness here for EGD/colonoscopy for anemia/GI bleed ANE Past Medical History - Cardiovascular History Hx Hypertension: Yes Hx Arrhythmias: No Hx Chest Pain: No Hx Coronary Artery / Peripheral Vascular Disease: No Hx CHF / Valvular Disease: No Hx Palpitations: No Cardiovascular History Comment: history of murmur, does water aerobics - Pulmonary History Hx COPD: No Hx Asthma/Reactive Airway Disease: No Hx Recent Upper Respiratory Infection: No Hx Oxygen in Use at Home: No Hx Sleep Apnea: No Sleep Apnea Screening Result - Last Documented: Negative - Neurologic History Neurologic History Comment: h/o vertigo and left ear pain - Endocrine History Hx Diabetes: No - Renal History Hx Renal Disorders: No - Liver History Hx Hepatic Disorders: No - Neurological & Psychiatric Hx Hx Neurological and Psychiatric Disorders: No ANE Review of Systems Review of systems is: negative Review of Systems: - Exercise capacity Exercise capacity: >=4 METS ANE Patient History - Allergies Allergies/Adverse Reactions: No Known Allergies Allergy (Verified 02/17/17 09:40) - Home Medications Home medications: home medication list seen and reviewed Home Medications: Multivitamins [Multivitamin (*)] 1 each PO DAILY 07/11/18 [Last Taken Unknown] Simvastatin 20 mg PO DAILY 07/11/18 [Last Taken Unknown] amLODIPine BESYLATE [Amlodipine Besylate] 5 mg PO DAILY 07/11/18 [Last Taken Unknown] - NPO status NPO Status: no food or drink >8 hours NPO Since - Liquids (Date): 07/13/18 NPO Since - Liquids (Time): 00:01 NPO Since - Solids (Date): 07/13/18 NPO Since - Solids (Time): 00:01 - Smoking Hx Smoking Status: Never smoked - Alcohol Use Alcohol Use: Sober ANE Labs/Vital Signs - Labs Result Diagrams: 07/13/18 09:25 07/13/18 09:25 - Vital Signs Vital Signs: reviewed preoperatively; see RN documention for details Blood Pressure: 176/85 Heart Rate: 70 Respiratory Rate: 16 O2 Sat (%): 93 Height: 160.02 cm Weight: 65.77 kg ANE Physical Exam - Airway Neck exam: FROM Mallampati Score: Class 1 - Pulmonary Pulmonary: no respiratory distress - Cardiovascular Cardiovascular: regular rate and rhythym, systolic murmur - ASA Status ASA Status: II, III ANE Anesthesia Plan Anesthesia Plan: GA with mask
[2018-07-13] MEDS ORDERED: PROPOFOL/EMULSION 500 MG/50 ML BOTTLE IV ONE (11:09)
[2018-07-13] MEDS ORDERED: fentaNYL 100 MCG/2 ML INJ ONE (11:17)
--- NOTE | 2018-07-13 12:06 | GIREPORT ---
[facility] Surgical Services - Endoscopy Department Patient Name: Mita Nichole Procedure Date: 07/13/2018 10:48 AM Patient Type: Inpatient Attending MD/ ER Physician: Bryant Odell MD Procedure: Upper GI endoscopy Indications: Heme positive stool, Acute post hemorrhagic anemia Providers: Bryant Odell MD Medicines: Propofol per Anesthesia Complications: No immediate complications. Description of Procedure: After obtaining informed consent, the endoscope was passed under direct vision. Throughout the procedure, the patient's blood pressure, pulse, and oxygen saturations were monitored continuously. The Endoscope was intro duced through the mouth, and advanced to the third part of duodenum. The uppe r GI endoscopy was accomplished without difficulty. The patient tolerated th e procedure well. Findings: The examined esophagus was normal. A small hiatal hernia was present. One non-bleeding cratered gastric ulcer with no stigmata of bleeding wa s found in the gastric body and on the greater curvature of the stomach. The lesion was 10 mm in largest dimension. Multiple dispersed, small non-bleeding erosions were found in the gastr ic antrum. There were no stigmata of recent bleeding. Biopsies were taken with a cold forceps for histology. The examined duodenum was normal. Estimated Blood Loss: Estimated blood loss: none. Post Op Diagnosis: - Normal esophagus. - Small hiatal hernia. - Non-bleeding gastric ulcer with no stigmata of bleeding; probable cau se of anemia and GI bleed however should also exclude lower source. - Non-bleeding erosive gastropathy. Biopsied. - Normal examined duodenum. Recommendation: - Perform a colonoscopy today. Attending Participation: I personally performed the entire procedure. Bryant Odell MD Bryant Odell MD 07/13/2018 12:05:17 PM This report has been signed electronicallyBryant Odell MD Number of Addenda: 0 Note Initiated On: 07/13/2018 10:48 AM [email or web address]
--- NOTE | 2018-07-13 12:08 | GIREPORT ---
[facility] Surgical Services - Endoscopy Department Patient Name: Mita Nichole Procedure Date: 07/13/2018 10:56 AM Patient Type: Inpatient Attending MD/ ER Physician: Bryant Odell MD Procedure: Colonoscopy Indications: Heme positive stool, Acute post hemorrhagic anemia Providers: Bryant Odell MD Medicines: Propofol per Anesthesia Complications: No immediate complications. Description of Procedure: After obtaining informed consent, the scope was passed under direct vis ion. Throughout the procedure, the patient's blood pressure, pulse, and oxyg en saturations were monitored continuously. The Colonoscope was introduced through the anus and advanced to the terminal ileum. The colonoscopy wa s performed without difficulty. The patient tolerated the procedure well. The quality of the bowel preparation was excellent. Findings: The terminal ileum appeared normal. The colon (entire examined portion) appeared normal. The perianal and digital rectal examinations were normal. Estimated Blood Loss: Estimated blood loss: none. Post Op Diagnosis: - The examined portion of the ileum was normal. - The entire examined colon is normal. - No specimens collected. Recommendation: - [facility]. - Resume regular diet today. - Continue present medications. - Perform an upper GI endoscopy in 2 months. - The findings and recommendations were discussed with the patient's fa jayce. Attending Participation: I personally performed the entire procedure. Bryant Odell MD Bryant Odell MD 07/13/2018 12:08:09 PM This report has been signed electronicallyBryant Odell MD Number of Addenda: 0 Note Initiated On: 07/13/2018 10:56 AM Total Procedure Duration Time 0 hours 14 minutes 57 seconds [email or web address]
--- NOTE | 2018-07-13 12:12 | POSTOPPROG ---
Post Op Note Date of Operation: 07/13/18 Surgeon: Bryant Odell Anesthesiologist: Jimmy Ash MD Anesthesia: Other (Specify) (IV General) Pre-op Diagnosis: Post hemorrhagic anemia, heme positive stool. Post-op Diagnosis: 1. Same. 2. Gastric ulcer; cause of GI bleed and anemia. 3. Normal colon. Indication: Acute post-hemorrhagic anemia and heme + stool. Procedure: EGD with Bx and colonoscopy. Findings: 1 cm gastric body ulcer without active bleeding, normal colonoscopy. Inf/Abcess present in the surg proc area at time of surgery?: No EBL: Minimal Complications: None. Bowel Protocol: No Clean Closure Performed: No Specimen(s): Gastric biopsies to R/O H. pylori.
[2018-07-13] MEDS ORDERED: CARBAMIDE PEROXIDE 15 ML OTIC.BTL LEFTEAR SCH (13:00)
[2018-07-13 13:06] VITALS: BP 180/94
--- NOTE | 2018-07-13 14:56 | ASMTLACE ---
LACE Length of stay for Answers: 2 days current admission Acuity / Level of Answers: Yes Care: Did the patient have an inpatient admission? Comorbidities - select Answers: Other Notes: HTN; HLD all that apply # of Emergency department Answers: 1-2 visits in the last 6 months Score: 7 Date Signed: 07/13/2018 02:55 PM Electronically Signed By:MICHELLE Kennedy
--- NOTE | 2018-07-13 17:49 | PDDCSUM ---
Discharge Summary Discharge Summary: Discharge diagnosis Vertigo Upper GI bleed Acute blood loss anemia Patient was admitted with complaints of dizziness with standing like the room is spinning along with faintness. Brain MRI and head CT both were negative for any acute CVA or other abnormality. She had also been complaining of black and bloody stool for the past few weeks which seemed to correlate with the symptoms of her dizziness. Overnight her hemoglobin hematocrit drop substantially requiring transfusion. Gastroenterology was consulted who recommended upper and lower endoscopy. Colonoscopy was normal however upper endoscopy did find a non bleeding ulceration. GI recommended starting a PPI with follow-up upper endoscopy in 2 months. Her symptoms of dizziness and vertigo resolved but she did continue to have left ear pain. Otoscopic examination failed to reveal any acute otitis. Debrox was ordered however the patient was eager to be discharged home as her son was supposed to leave for a cruise ship trip the following morning. She was discharged but explicitly explained that she needed to follow up with her primary care physician for further evaluation of her left ear pain and she could have otitis media. She felt that the pain had lessened but did agree to follow up with her primary care physician for further evaluation. Disposition Home independent Follow-up With her primary care physician as soon as possible With Gastroenterology in 2 months for repeat upper endoscopy I spent over 30 min on the discharge of this patient
== END 2018-07-13 15:56 | disposition home or self-care (01) | DRG 378 ==
LOC: F3E 18:45 → OBSVTOIN 07-12 15:26
PROVIDERS: ADMIT Internal Medicine; ATTEND Internal Medicine
PROC: 0DB68ZX Excision of Stomach, Via Natural or Artificial Opening Endoscopic, Diagnostic (ICD-10-PCS; principal; 2018-07-13 11:00)
PROC: 0DJD8ZZ Inspection of Lower Intestinal Tract, Via Natural or Artificial Opening Endoscopic (ICD-10-PCS; principal; 2018-07-13 11:00)
DX: K25.4 Chronic or unspecified gastric ulcer with hemorrhage (principal); D62 Acute posthemorrhagic anemia; R42 Dizziness and giddiness; H92.02 Otalgia, left ear; I10 Essential (primary) hypertension; E78.5 Hyperlipidemia, unspecified; Z86.010 Personal history of colon polyps
CPT/HCPCS: 70551-PN; 82607-90; 84484-ER; 96374; 97165-GO; G0378; J1885; J2060; J2704; J3010; P9016